=== PATIENT | female | born 1970 | race Caucasian/White ===

== ENCOUNTER → 2020-07-27 | Outpatient (CLI) | payer OTHER ==
[~2020-07-27] MED LIST: BACTRIM DS TAB1 EACH PO; CLONIDINE HCL0.1 MG PO; ECOTRIN81 MG PO; FOLIC ACID 1 MG1 MG PO; KEFLEX CAP 500500 MG PO; LISINOPRIL20 MG PO; METHADONE HCL10 MG PO; PERCOCET 5/325 T1 EA PO; SEROQUEL200 MG PO; TOPIRAMATE100 MG PO; VIBRAMYCIN100 MG PO; VITAMIN B IM; ZANAFLEX4 MG PO; ZOFRAN4 MG PO
== END ==
LOC: KOH-I 07-14 13:00
DX: R05 Cough (principal); R63.4 Abnormal weight loss; R91.8 Other nonspecific abnormal finding of lung field
CPT/HCPCS: 71250

== ENCOUNTER 2021-01-14 02:18 | Emergency (ER) | payer OTHER ==
[~2021-01-14 02:18] MED LIST changes: -BACTRIM DS TAB1 EACH PO; -PERCOCET 5/325 T1 EA PO
[2021-01-14 03:18] LABS: HEMOGLOBIN 13.6 gm/dl (12.3-15.3); RED BLOOD COUNT 4.24 M/UL (4.00-5.10); WHITE BLOOD COUNT 8.7 K/UL (4.5-11.0)
[2021-01-14] MEDS ORDERED: BACTRIM DS TAB1 EACH PO (05:16)
[2021-01-14] MEDS ORDERED: PERCOCET 5/325 T1 EA PO (05:16)
== END 2021-01-14 05:50 | disposition home or self-care (01) ==
LOC: ER1 02:18
PROVIDERS: Family Medicine
DX: R10.84 Generalized abdominal pain (principal); R11.2 Nausea with vomiting, unspecified; J44.9 Chronic obstructive pulmonary disease, unspecified; I25.2 Old myocardial infarction; Z88.1 Allergy status to other antibiotic agents
CPT/HCPCS: 80053; 81001; 83690; 84703; 85025; 96374; 96375; 99284; J2270; J2405; J7030; Q9967

== ENCOUNTER 2021-03-17 12:47 | Emergency (ER) | payer OTHER ==
[~2021-03-17 12:47] MED LIST changes: +BACTRIM DS TAB1 EACH PO; +PERCOCET 5/325 T1 EA PO
[2021-03-17 14:52] LABS: RED BLOOD COUNT 3.44 M/UL (4.00-5.10); WHITE BLOOD COUNT 7.3 K/UL (4.5-11.0)
[2021-03-17] MEDS ORDERED: VIBRAMYCIN 100100 MG PO (17:47)
[2021-03-17] MEDS ORDERED: AUGMENTIN 875-1 EACH PO (17:47)
== END 2021-03-17 18:38 | disposition home or self-care (01) ==
LOC: ER1 12:47
PROVIDERS: Physician Assistant Medical
DX: J18.9 Pneumonia, unspecified organism (principal); Z20.822 Contact with and (suspected) exposure to COVID-19; I10 Essential (primary) hypertension; I25.2 Old myocardial infarction
CPT/HCPCS: 71045; 80053; 83605; 83690; 84484; 85025; 85379; 93005; 99285; Q9967; U0002